=== PATIENT | female | born 1970 | race Caucasian/White ===

== ENCOUNTER 2025-05-20 06:23 | Day surgery (SDC) | payer OTHER, SELFPAY | END 2025-05-20 09:43 | disposition home or self-care (01) | LOC: GI 06:23 | PROVIDERS: ATTENDING PHYSICIAN Internal Medicine Gastroenterology | DX: K63.5 Polyp of colon (principal); K57.30 Diverticulosis of large intestine without perforation or abscess without bleeding; Z86.0100 Personal history of colon polyps, unspecified; Z83.719 Family history of colon polyps, unspecified | CPT/HCPCS: 45385; 88305 ==